=== PATIENT | female | born 1930 | race Caucasian/White ===

== ENCOUNTER → 2016-10-23 | Outpatient (CLI) | payer MEDICARE, SELFPAY ==
[~2016-10-23] MED LIST: AMITIZA 24 MCG24 MCG PO; AMITIZA24 MCG PO; ASPIRIN81 MG PO; CATAPRES 0.1MG0.1 MG PO; CLARITIN 10MG T10 MG PO; COLACE 100MG C100 MG PO; ELIQUIS2.5 MG PO; HYDRALAZINE HCL50 MG PO; IMDUR ER TAB 3030 MG PO; KLOR-CON 1010 MEQ PO; KLOR-CON20 MEQ PO; LANTUS100 UNIT/1 SQ; LASIX20 MG PO; LASIX40 MG PO; LEVEMIR100 UNIT/1 SQ; LISINOPRIL10 MG PO; NORCO 7.5-3251 EACH PO; NORVASC 5 MG TAB5 MG PO; PLAVIX75 MG PO; PROVENTIL HFA 61 INH INH; SILDENAFIL20 MG PO; SYMBICORT 16010.2 GM INH; TESSALON PERLE100 MG PO; ZOFRAN4 MG PO
== END ==
LOC: EXRD 11:21
DX: J45.991 Cough variant asthma (principal); J42 Unspecified chronic bronchitis; I65.29 Occlusion and stenosis of unspecified carotid artery; I48.91 Unspecified atrial fibrillation; I35.0 Nonrheumatic aortic (valve) stenosis; I66.9 Occlusion and stenosis of unspecified cerebral artery; I63.9 Cerebral infarction, unspecified; J30.9 Allergic rhinitis, unspecified; R47.01 Aphasia; R06.02 Shortness of breath; F17.210 Nicotine dependence, cigarettes, uncomplicated; R94.2 Abnormal results of pulmonary function studies
CPT/HCPCS: 71020; 94060

== ENCOUNTER 2016-11-05 17:57 | Emergency (ER) | payer MEDICARE, SELFPAY ==
[~2016-11-05 17:57] MED LIST changes: -CLARITIN 10MG T10 MG PO; -COLACE 100MG C100 MG PO; -LASIX20 MG PO; -NORVASC 5 MG TAB5 MG PO; -PLAVIX75 MG PO; -SILDENAFIL20 MG PO
[2016-11-05 19:36] LABS: HEMOGLOBIN 8.6 gm/dl (12.3-15.3); RED BLOOD COUNT 3.56 M/UL (4.00-5.10)
== END 2016-11-05 22:30 ==
LOC: ER1 17:57
PROVIDERS: Physician Assistant
DX: I13.0 Hypertensive heart and chronic kidney disease with heart failure and stage 1 through stage 4 chronic kidney disease, or unspecified chronic kidney disease (principal); I50.9 Heart failure, unspecified; N17.9 Acute kidney failure, unspecified; N18.3 Chronic kidney disease, stage 3 (moderate); E11.22 Type 2 diabetes mellitus with diabetic chronic kidney disease; I35.0 Nonrheumatic aortic (valve) stenosis; D64.9 Anemia, unspecified; I48.2 Chronic atrial fibrillation; Z88.2 Allergy status to sulfonamides; Z88.5 Allergy status to narcotic agent; Z88.8 Allergy status to other drugs, medicaments and biological substances
CPT/HCPCS: 36415; 71010; 80053; 82550; 82553; 83874; 83880; 84484; 85025; 93005; 99285

== ENCOUNTER 2016-12-31 20:15 | Inpatient (IN) | payer MEDICARE, OTHER ==
[~2016-12-31] VITALS: Ht 170.2 cm; Wt 92.6 kg
[2016-12-31 22:22] LABS: HEMOGLOBIN 8.7 gm/dl (12.3-15.3); RED BLOOD COUNT 4.18 M/UL (4.00-5.10); WHITE BLOOD COUNT 6.8 K/UL (4.5-11.0)
[2017-01-01] MEDS ORDERED: NORVASC 5 MG TAB5 MG PO (03:06)
[2017-01-01] MEDS ORDERED: LASIX20 MG PO (03:07)
[2017-01-01] MEDS ORDERED: COLACE 100MG C100 MG PO (03:07)
[2017-01-01] MEDS ORDERED: SILDENAFIL20 MG PO (03:08)
[2017-01-01] MEDS ORDERED: PLAVIX75 MG PO (03:08)
[2017-01-01] MEDS ORDERED: CLARITIN 10MG T10 MG PO (03:08)
[2017-01-01 04:17] LABS: HEMOGLOBIN 8.6 gm/dl (12.3-15.3); RED BLOOD COUNT 4.12 M/UL (4.00-5.10); WHITE BLOOD COUNT 7.5 K/UL (4.5-11.0)
== END 2017-01-02 11:56 | disposition home or self-care (01) | DRG 291 ==
LOC: ER1 20:15 → MED SURG 4 23:10 → ZEROF 23:10 → MED SURG 4 01-01 00:53
PROVIDERS: Emergency Medicine; Internal Medicine; ADMIT Internal Medicine
DX: I13.0 Hypertensive heart and chronic kidney disease with heart failure and stage 1 through stage 4 chronic kidney disease, or unspecified chronic kidney disease (principal); I50.33 Acute on chronic diastolic (congestive) heart failure; Z88.0 Allergy status to penicillin; N18.9 Chronic kidney disease, unspecified; I27.2 Other secondary pulmonary hypertension; E11.22 Type 2 diabetes mellitus with diabetic chronic kidney disease; N18.3 Chronic kidney disease, stage 3 (moderate); J45.909 Unspecified asthma, uncomplicated; I48.2 Chronic atrial fibrillation; Z79.01 Long term (current) use of anticoagulants; D50.9 Iron deficiency anemia, unspecified; Z88.2 Allergy status to sulfonamides; E66.9 Obesity, unspecified; Z68.30 Body mass index [BMI] 30.0-30.9, adult; Z82.49 Family history of ischemic heart disease and other diseases of the circulatory system; Z88.5 Allergy status to narcotic agent; Z79.4 Long term (current) use of insulin; Z79.899 Other long term (current) drug therapy
CPT/HCPCS: ECHO; 36415; 71010; 71020; 80048; 80053; 82550; 82553; 82962; 83605; 83735; 83874; 83880; 84100; 84439; 84443; 84484; 85025; 93005; 93306; 96374; 99285; J1650; J1940